=== PATIENT | male | born 1990 | race Caucasian/White ===

== ENCOUNTER 2017-07-10 02:23 | Emergency (ER) | payer SELFPAY ==
[~2017-07-10] VITALS: Ht 180.3 cm; Wt 97.5 kg
[~2017-07-10 02:23] MED LIST: CIPR500T78 PO; HYDR-757 PO; METR500T PO; ONDA8TAB13 PO; TRAM50TA2 PO
--- OUTSIDE RECORDS SUMMARY | 2017-07-10 02:30 | XMS REPORT ---
Author GHAZAL Will Organization [employer] Address Unknown Phone Unavailable Care Team Providers Care Lopper Name Role Phone GHAZAL GOMZE CP Unavailable Allergies, Adverse Reactions, Alerts Substance Reaction Event Type N.K.D.A. Info Not Available Non Drug Allergy Problems Problem Type Condition Code Onset Dates Condition Status Assessment Diarrhea, unspecified type R19.7 Active Assessment Right lower quadrant abdominal pain R10.31 Active Medications No Known Medications Procedures Procedure Coding System Code Date C-REACTIVE PROTEIN CPT-4 20706 March 10, 2016 VENIPUNCT, ROUTINE* CPT-4 29939 March 10, 2016 MANUAL CELL COUNT, EACH CPT-4 62465 March 10, 2016 Office Visit, Est Pt., Level 3 CPT-4 97036 March 10, 2016 Vital Signs Date/Time: March 10, 2016 Cardiac Monitoring Heart Rate 52 bpm Weight 203.2 lbs Height 71 in Blood Pressure Diastolic 70 mmHg Blood Pressure Systolic 110 mmHg Results No Known Results Summary Purpose [employer] Submission
--- OUTSIDE RECORDS SUMMARY | 2017-07-10 02:30 | XMS REPORT | Continuity of Care Document ---
Author Author [facility] Organization [facility] Address Unknown Phone Unavailable Allergies Active Description Code Type Severity Reaction Onset Reported/Identified Relationship to Patient Clinical Status Yes NKANo Known Allergies NKA Miscellaneous Allergy Unknown N/ A 09/26/2006 Medications Problems Date Dx Coded Attending Type Code Diagnosis Diagnosed By 10/31/2010 Ot 784.8 09/26/2014 OMAIRA VALDEZ Ot 558.9 09/26/2014 OMAIRA VALDEZ Ot 784.0 09/26/2014 OMAIRA VALDEZ Ot 789.09 Procedures Results Encounters ACCT No. Visit Date/Time Discharge Status Pt. Type Provider Facility Loc./Unit Complaint [id number] 06/20/2015 12:06:00 2014 13:05:00 DIS Emergency ТАТЬЯНА MEEKS APRN [facility] ER [id number] 09/26/2014 14:36:00 2014 19:05:00 DIS Emergency OMAIRA VALDEZ [facility] ER [id number] 10/31/2010 01:00:00 Document Registration
[2017-07-10] MEDS ORDERED: TETRACAINE 0.5% OPHTH SOLN 4 ML BTL (SINGLE DOSE ONLY) OP ONE (02:45)
--- NOTE | 2017-07-10 03:00 | ED EENT ---
History of Present Illness General Chief Complaint: Foreign Body Stated Complaint: POSS BUG IN EAR Nursing Triage Note: BUG IN RIGHT EAR Source: patient Exam Limitations: no limitations History of Present Illness Time seen by provider: 02:26 Initial Comments This 26-year-old young man presents to the emergency room with an insect in his right ear. It is been there for an hour or 2. He has not been able to get it out. Allergies and Home Medications Allergies Coded Allergies: NKANo Known Allergies (Verified Allergy, Unknown, 09/26/06) Review of Systems Constitutional: no symptoms reported Ears: See HPI Past Shxzluo-Xfmxjn-Msitzy Hx Patient Social History Alcohol Use: Occasionally Uses Alcohol Beverage of Choice: Beer Recreational Drug Use: No Smoking Status: Never a Smoker 2nd Hand Smoke Exposure: No Recent Foreign Travel: No Contact w/Someone Who Travel: No Recent Infectious Disease Expo: No Recent Hopitalizations: No Immunizations Up To Date Tetanus Booster (TDap): Unknown Seasonal Allergies Seasonal Allergies: No Surgeries History of Surgeries: Yes (tubes in ears) Surgeries: Ear Surgery Respiratory History of Respiratory Disorde: No Cardiovascular History of Cardiac Disorders: No Neurological History of Neurological Disord: No Reproductive System Hx Reproductive Disorders: No Genitourinary History of Genitourinary Disor: No Gastrointestinal History of Gastrointestinal Di: No Musculoskeletal History of Musculoskeletal Dis: No Endocrine History of Endocrine Disorders: No HEENT History of HEENT Disorders: No Cancer History of Cancer: No Psychosocial History of Psychiatric Problem: No Integumentary History of Skin or Integumenta: No Blood Transfusions History of Blood Disorders: No Family Medical History Significant Family History: No Pertinent Family Hx Physical Exam Vital Signs Vital Sign - Last 12Hours 07/10/17 02:31 Temp 98.0 Pulse 62 Resp 16 B/P (MAP) 122/95 Pulse Ox 98 O2 Delivery Room Air General Appearance: WD/WN, no apparent distress Ears: right ear other (small greenberg-like insect crawling around in the right ear ), bilateral ear auricle normal, bilateral ear canal normal, bilateral ear TM normal Progress/Results/Core Measures Results/Orders My Orders Orders - VANESSA BLACKBURN MD Tetracaine 0.5% Ophth Bernie Sdv (Tetracai (07/10/17 02:45) Medications Given in ED Current Medications Medications Dose Ordered Sig/Chaitanya Route Start Time Stop Time Status Last Admin Dose Admin Tetracaine HCl 1 OR 2 DROPS INTO AFFEC... ONCE ONCE OP 07/10/17 02:45 07/10/17 02:46 DC 07/10/17 02:35 4 ML Vital Signs/I&O Vital Sign - Last 12Hours 07/10/17 07/10/17 02:31 03:07 Temp 98.0 98.0 Pulse 62 62 Resp 16 16 B/P (MAP) 122/95 Pulse Ox 98 98 O2 Delivery Room Air Blood Pressure Mean: 104 Progress Note : Progress Note Patients right ear was slowly filled with tetracaine and insect floated out. Ear was re-examined and found to be normal. Departure Impression Impression: Primary Impression: Foreign body in ear Qualified Codes: T16.1XXA - Foreign body in right ear, initial encounter Disposition: HOME, SELF-CARE Condition: Improved Departure-Patient Inst. Decision time for Depature: 02:50 Referrals: [facility] (PCP/Family) Primary Care Physician Patient Instructions: NO INSTRUCTIONS GIVEN Add. Discharge Instructions: Return to care if you have worsening symptoms such as increasing pain, drainage from the ear, etc. All discharge instructions reviewed with patient and/or family. Voiced understanding. VANESSA BLACKBURN MD Jul 10, 2017 02:59
[2017-07-10 03:07] VITALS: BP 122/95
== END 2017-07-10 03:07 | disposition home or self-care (01) ==
LOC: EDUNIT# 02:23 → ER 02:26
DX: T16.1XXA Foreign body in right ear, initial encounter (principal); Z96.22 Myringotomy tube(s) status
CPT/HCPCS: 99282